=== PATIENT | female | born 1985 | race Two or more races ===

== ENCOUNTER 2017-10-27 23:10 | Emergency (ER) | payer OTHER, SELFPAY ==
[~2017-10-27] VITALS: Ht 152.4 cm; Wt 92.0 kg
[2017-10-28 00:02] LABS: BASOPHILS # (AUTO) 0.04 x10^3/uL (0-0.1); BASOPHILS % (AUTO) 1 % (0-1); EOSINOPHILS # (AUTO) 0.14 x10^3/uL (0-0.4); EOSINOPHILS % (AUTO) 2 % (1-7); LYMPHOCYTES # (AUTO) 2.55 x10^3/uL (1-3.4); LYMPHOCYTES % (AUTO) 26 % (22-44); MD NO; MEAN CORPUSCULAR HGB CONC 33.2 g/dL (32.4-35.8); MEAN CORPUSCULAR VOLUME 78.3 fL (80-100); MEAN PLATELET VOLUME 7.8 fL (7.4-10.4); MONOCYTES # (AUTO) 0.75 x10^3/uL (0.2-0.8); MONOCYTES % (AUTO) 8 % (2-9); NEUTROPHILS % (AUTO) 64 % (42-75); PLATELET COUNT 251 x10^3/uL (130-400); RED CELL DISTRIBUTION WIDTH 16.9 % (9.6-15.2)
[2017-10-28 00:13] LABS: ALANINE AMINOTRANSFERASE 19 U/L (12-78); ALBUMIN 3.1 g/dL (3.4-5.0); ANION GAP 9 mmol/L (5-15); CALCIUM 8.3 mg/dL (8.5-10.1); CHLORIDE 108 mmol/L (98-107)
[2017-10-28 00:17] LABS: ALKALINE PHOSPHATASE 68 U/L (45-117); BILIRUBIN,TOTAL 0.2 mg/dL (0.2-1.0); TOTAL PROTEIN 7.3 g/dL (6.4-8.2)
[2017-10-28 00:25] LABS: CULTURE INDICATED? YES; MICROSCOPIC INDICATED
[2017-10-28 01:10] VITALS: BP 126/82
== END 2017-10-28 01:13 | disposition home or self-care (01) ==
LOC: ED 23:59
DX: O20.0 Threatened abortion (principal); R82.99 Other abnormal findings in urine; Z3A.01 Less than 8 weeks gestation of pregnancy
CPT/HCPCS: 36415; 76856; 80053; 81001; 84702; 85025; 86901; 87086; 99285

== ENCOUNTER 2020-07-30 15:38 | Emergency (ER) | payer BC, OTHER ==
[~2020-07-30] VITALS: Ht 152.4 cm; Wt 94.3 kg
--- NOTE | 2020-07-30 16:18 | NUR ---
PT CAME IN CO OF VB. PT STATES SHE IS ABOUT 5-6 WEEKS AND IS SPOTTING. PT DENIES ABD PAIN OR CRAMPING. PT HAS HX OF MISCARRIGAES - 6. PT ACCOMPANIED BY MOTHER. [facility]. AWAITING ORDERS.
[2020-07-30 16:58] LABS: BASOPHILS % (AUTO) 0 % (0-1); EOSINOPHILS % (AUTO) 2 % (1-7); LYMPHOCYTES % (AUTO) 21 % (22-44); MEAN CORPUSCULAR HEMOGLOBIN 26.3 pg (27.0-34.8); MEAN CORPUSCULAR HGB CONC 32.8 g/dL (32.4-35.8); MEAN PLATELET VOLUME 7.7 fL (7.4-10.4); MONOCYTES % (AUTO) 10 % (2-9); NEUTROPHILS % (AUTO) 66 % (42-75); PLATELET COUNT 235 x10^3/uL (130-400); RED BLOOD COUNT 4.84 x10^6/uL (3.82-5.3); RED CELL DISTRIBUTION WIDTH 16.7 % (9.6-15.2)
[2020-07-30 17:00] LABS: MD NO
[2020-07-30 17:08] LABS: ALBUMIN 3.5 g/dL (3.4-5.0); ANION GAP 5 mmol/L (5-15); CALCIUM 8.7 mg/dL (8.5-10.1); CHLORIDE 109 mmol/L (98-107); CREATININE 0.73 mg/dL (0.55-1.02)
--- NOTE | 2020-07-30 17:08 | NUR ---
PT TO US AT THIS TIME
[2020-07-30 18:02] VITALS: BP 116/75
--- NOTE | 2020-07-30 18:11 | NUR ---
TASK RN: DC EDUCATION PROVIDED, PT DEMONSTRATES UNDERSTANDING. PT AMBULATED STEADIY TO DC W RN AND FAMILY. FAMILY TO TRANSPORT PT HOME.
== END 2020-07-30 18:13 | disposition home or self-care (01) ==
LOC: ED 17:15
DX: O20.0 Threatened abortion (principal); R10.9 Unspecified abdominal pain; Z3A.01 Less than 8 weeks gestation of pregnancy
CPT/HCPCS: 36415; 76801; 80048; 82040; 84702; 85025; 86901; 99284

== ENCOUNTER 2020-08-01 10:30 | Emergency (ER) | payer BC ==
[~2020-08-01] VITALS: Ht 152.4 cm; Wt 94.4 kg
[2020-08-01 10:34] VITALS: BP 125/82
--- NOTE | 2020-08-01 10:48 | NUR ---
PT IS "4-5 WEEKS ". WAS SEEN ON SUNDAY FOR VB AND POSSIBLE MISCARRIAGE. PT WAS TOLD TO RETURN ON SUNDAY TO GET HER HCG CHECKED.
--- NOTE | 2020-08-01 12:52 | NUR ---
PT TO US AT THIS TIME
--- NOTE | 2020-08-01 14:09 | NUR ---
discharge instructions reviewed
== END 2020-08-01 14:29 | disposition home or self-care (01) ==
LOC: ED 11:35
DX: O20.0 Threatened abortion (principal); Z3A.01 Less than 8 weeks gestation of pregnancy
CPT/HCPCS: 36415; 76801; 84702; 99284